=== PATIENT | female | born 1995 | race African-American/Black ===

== ENCOUNTER 2016-07-05 11:41 | Emergency (ER) | payer MEDICARE, MEDICAID ==
[~2016-07-05] VITALS: Ht 162.6 cm; Wt 49.0 kg
[~2016-07-05 11:41] MED LIST: ALPR.5 PO; IBUP-232 PO
[2016-07-05 11:42] VITALS: BP 179/93; PULSE 98; RESP 24; TEMP 97.9; O2SAT 100
[2016-07-05] MEDS ORDERED: SODIUM CHLOR 0.9% 1000 ML INJ 1,000 ML IV SCH ×2 (12:04→13:27)
[2016-07-05] MEDS ORDERED: ONDANSETRON HCL 4 MG/2 ML VIAL IVP ONE (12:15)
[2016-07-05] MEDS ORDERED: DICYCLOMINE HCL 20 MG/2 ML VIAL IM ONE (12:15)
[2016-07-05] MEDS ORDERED: MORPHINE SULFATE 4 MG/ML INJ IV PUSH ONE (12:15)
--- NOTE | 2016-07-05 12:22 | PD ---
HPI Chief Complaint: Abdominal Pain Time Seen by Provider: 12:18 Travel History International Travel<30 days: No Contact w/Intl Traveler<30days: No Traveled to known affect area: No History of Present Illness HPI 20-year-old female that presents to the ED for evaluation of lower abdominal pain. Per patient she's had right lower quadrant pain for the past week. Per patient is severe. Per patient she's throwing up as well. Patient denies any diarrhea. Per patient she does have some vaginal discharge. She denies any chest pain or shortness of breath. Per patient she to the flexeril with minimal relief. She states that the pain is severe 10 out of 10. On my initial exam evaluation patient is crouching in the position and cannot really let me touch her belly. Patient touches my stomach were she tells me that she hurts. Per patient she went to an urgent care today and they told her to come here. She states that the vomitus liquidy and she cannot keep anything down. She states that she does not believe that she could be but she has had intercourse recently. Patient has been here multiple times last year. Patient was seen multiple times for similar complaints and was never found to have any real disease. Per patient the pain does not radiate. Nothing makes the pain better or worse. PFSH Past Medical History Medical History: Denies Significant Hx Cardiovascular Problems: No Developmental Delay: No Diabetes: No Diminished Hearing: No Immunizations Current: Yes Tetanus Vaccination: Unknown Influenza Vaccination: No ?: Not LMP: 07/04/16 : 1 : 1 Past Surgical History Surgical History: No Previous Surgery Social History Alcohol Use: No Tobacco Use: No Substance Use: Yes (MARIJUANA) Allergies-Medications (Allergen,Severity, Reaction): Coded Allergies: No Known Allergies (Verified , 07/05/16) Reported Meds & Prescriptions Reported Meds & Active Scripts Active Zofran (Ondansetron HCl) 4 Mg Tab 4 Mg PO Q6HR PRN Bentyl (Dicyclomine HCl) 20 Mg Tab 20 Mg PO TID Ibuprofen 600 Mg Tab 600 Mg PO TID Reported Xanax (Alprazolam) 0.5 Mg Tab 0.5 Mg PO ONCE PRN Review of Systems General / Constitutional: No: Fever, Chills, Weight Gain, Weight Loss, Other Eyes: No: Diploplia, Blurred Vision, Photophobia, Drainage, Redness, Foreign Body Sensation, Pain, Tearing, Blind Spots, Visual changes, Blindness, Other HENT: No: Headaches, Vertigo, Lightheadedness, Sore Throat, Rhinitis, Rhinorrhea, Congestion, Nosebleed, Neck Stiffness, Neck Pain, Masses, Gingival Bleeding, Dental Difficulties, Ear Discharge, Earache, Other Cardiovascular: No: Chest Pain or Discomfort, Palpitations, Irregular Rhythm, Tachycardia, Diaphoresis, Syncope, Dyspnea on exertion, Varicosities, Edema, Cyanosis, Varicosities, Phlebitis, Claudication, Other Respiratory: No: Cough, Shortness of Breath, Wheezing, Sneezing, Orthopnea, Hemoptysis, Stridor, Night Sweats, Pleuritic Pain, Other Gastrointestinal: Positive: Nausea, Vomiting, Abdominal Pain, No: Diarrhea, Hematemesis, Hematochezia, Constipation, Changes in Bowel Habits, Indigestion, Dysphagia, Loss of Appetite, Other Genitourinary: Positive: Pelvic Pain, Discharge, No: Urgency, Frequency, Dysuria, Nocturia, Hematuria, Decreased Urinary Output, Oliguria, Hesitancy, Dribbling, Incontinence, Flank Pain, Dyspareunia, Dysmenorrhea, Menorrhagia, Metorrhagia, Vaginal Bleeding, Other Musculoskeletal: No: Myalgias, Arthralgias, Limited ROM, Weakness, Cramping, Edema, Pain, Atrophy, Other Skin: No Rash, No Itching, No Dryness, No Lumps, No Hives, No Change in Pigmentation, No Change in nails, No Alopecia, No Lesions, No Breast Lumps, No Breast Tenderness, No Breast Swelling, No Other Neurologic: No: Weakness, Dizziness, Syncope, Focal Abnormalities, Coordination Problem, Tremor, Ataxia, Headache, Change in Mentation, Slurred Speech, Paresthesia, Incontinence, Seizures, Sensory Disturbance, Other Psychiatric: No: Anxiety, Depression, Suicidal Ideations, Disorder of Thought, Mood Disorder, Substance Abuse, Homicidal Ideation, Other Endocrine: No: Heat Intolerance, Cold Intolerance, Polyuria, Polydipsia, Other Hematologic/Lymphatic: No: Easy Bruising, Lymph Node Enlargement, Other Physical Exam Narrative GENERAL: SKIN: Warm and dry. HEAD: Atraumatic. Normocephalic. EYES: Pupils equal and round. No scleral icterus. No injection or drainage. ENT: No nasal bleeding or discharge. Mucous membranes pink and moist. NECK: Trachea midline. No JVD. CARDIOVASCULAR: Regular rate and rhythm. No murmurs, S3, S4. RESPIRATORY: No accessory muscle use. Clear to auscultation. Breath sounds equal bilaterally. GASTROINTESTINAL: Abdomen soft, very tender with deep palpation on the pelvic region especially in the right lower quadrant and left lower quadrant, nondistended. Hepatic and splenic margins not palpable. Genital exam: Done with female nurse present. Patient was found to have menses from the vagina. No obvious discharge noted at this time. No obvious cervical tenderness. No adnexal tenderness. No lymphadenopathy or labia mass noted. MUSCULOSKELETAL: Extremities without clubbing, cyanosis, or edema. No obvious deformities. NEUROLOGICAL: Awake and alert. No obvious cranial nerve deficits. Motor grossly within normal limits. Five out of 5 muscle strength in the arms and legs. Normal speech. PSYCHIATRIC: Appropriate mood and affect; insight and judgment normal. Data Data Last Documented VS Vital Signs Date Time Temp Pulse Resp B/P Pulse Ox O2 Delivery O2 Flow Rate FiO2 07/05/16 12:19 18 07/05/16 11:42 97.9 98 179/93 100 Room Air Orders Complete Blood Count With Diff (07/05/16 12:04) Comprehensive Metabolic Panel (07/05/16 12:04) Lipase (07/05/16 12:04) Urinalysis - C+S If Indicated (07/05/16 12:04) Iv Access Insert/Monitor (07/05/16 12:04) NPO (07/05/16 12:04) Morphine Inj (Morphine Inj) (07/05/16 12:15) Ondansetron Inj (Zofran Inj) (07/05/16 12:15) Sodium Chlor 0.9% 1000 Ml Inj (Ns 1000 M (07/05/16 12:04) Dicyclomine Inj (Bentyl Inj) (07/05/16 12:15) Lactic Acid (07/05/16 12:13) Blood Culture (07/05/16 12:13) Gc And Chlamydia Pcr (07/05/16 12:14) Wet Prep Profile (07/05/16 12:14) Ct Abd/Pel W Iv Contrast(Rout) (07/05/16 12:43) Sodium Chlor 0.9% 1000 Ml Inj (Ns 1000 M (07/05/16 13:27) Ed Urine Pregnancytest Poc (07/05/16 13:28) Iohexol 350 Inj (Omnipaque 350 Inj) (07/05/16 14:11) Labs Laboratory Tests Test 07/05/16 07/05/16 07/05/16 07/05/16 12:15 12:35 13:20 13:30 White Blood Count 12.4 TH/MM3 Red Blood Count 4.66 MIL/MM3 Hemoglobin 12.2 GM/DL Hematocrit 37.0 % Mean Corpuscular Volume 79.3 FL Mean Corpuscular Hemoglobin 26.2 PG Mean Corpuscular Hemoglobin 33.1 % Concent Red Cell Distribution Width 14.8 % Platelet Count 227 TH/MM3 Mean Platelet Volume 9.4 FL Neutrophils (%) (Auto) 91.5 % Lymphocytes (%) (Auto) 5.7 % Monocytes (%) (Auto) 2.2 % Eosinophils (%) (Auto) 0.1 % Basophils (%) (Auto) 0.5 % Neutrophils # (Auto) 11.3 TH/MM3 Lymphocytes # (Auto) 0.7 TH/MM3 Monocytes # (Auto) 0.3 TH/MM3 Eosinophils # (Auto) 0.0 TH/MM3 Basophils # (Auto) 0.1 TH/MM3 CBC Comment DIFF FINAL Differential Comment Sodium Level 139 MEQ/L Potassium Level 3.5 MEQ/L Chloride Level 104 MEQ/L Carbon Dioxide Level 24.9 MEQ/L Anion Gap 10 MEQ/L Blood Urea Nitrogen 7 MG/DL Creatinine 1.19 MG/DL Estimat Glomerular Filtration 69 ML/MIN Rate Random Glucose 145 MG/DL Calcium Level 8.9 MG/DL Total Bilirubin 0.3 MG/DL Aspartate Amino Transf 22 U/L (AST/SGOT) Alanine Aminotransferase 19 U/L (ALT/SGPT) Alkaline Phosphatase 80 U/L Total Protein 8.2 GM/DL Albumin 4.4 GM/DL Lipase 101 U/L Lactic Acid Level 3.2 mmol/L Urine Color LIGHT-YELLOW Urine Turbidity HAZY Urine pH 8.5 Urine Specific [place] 1.011 Urine Protein NEG mg/dL Urine Glucose (UA) TRACE mg/dL Urine Ketones NEG mg/dL Urine Occult Blood LARGE Urine Nitrite NEG Urine Bilirubin NEG Urine Urobilinogen LESS THAN 2.0 MG/DL Urine Leukocyte Esterase NEG Urine RBC 20 /hpf Urine WBC 1 /hpf Urine Squamous Epithelial <1 /hpf Cells Urine Amorphous Sediment FEW Urine Bacteria RARE /hpf Urine Mucus FEW /lpf Microscopic Urinalysis Comment CULT NOT INDICATED Clue Cells (Wet Prep) NONE SEEN Vaginal Trichomonas (Wet Prep) NONE SEEN Vaginal Yeast (Wet Prep) NONE SEEN MDM Medical Decision Making Medical Screen Exam Complete: Yes Emergency Medical Condition: Yes Medical Record Reviewed: Yes Interpretation(s) CBC & BMP Diagram 07/05/16 12:15 Lactic acid of 3.2 LFTs and lipase within normal limits. CT of abdomen and pelvis showed fluid in pelvis otherwise unremarcable. Differential Diagnosis Pelvic pain versus PID versus appendicitis versus acute abdomen versus acute on chronic pain versus chronic pain versus discharge versus vaginitis Narrative Course 20-year-old female that presents to the ED for evaluation of lower pelvic pain. Patient was properly examined and was found to have signs and symptoms consistent with appears to be lower abdominal pain. Unclear etiology at this time. Labs and pelvic exam recommended. Patient was medicated to ease her discomfort to better evaluate for do pelvic exam. Patient is agreeable with this. Labs showed elevated white blood cell count as well as lactic acid. Pelvic exam was performed and she unfortunately is on her menses. So only menses was seen but there is no sign of acute discharge. I do not notice any cervical tenderness on exam. I do not believe this is PID at this time. Wet prep and labs were essentially unremarkable other than again for likely acid and elevated bubbles account. CT was done and this did not show any sign of acute disease. At this time I believe that this is likely acute on chronic abdominal pain and she's had similar symptoms in the past. I recommend close follow with GI specialist. Patient does feel somewhat improved from her symptoms. Patient is able to tolerate fluids. Patient will be sent home with prescription for Bentyl and Zofran. Told to the liquid diet. See ED for worsening symptoms. Diagnosis Primary Impression: Abdominal pain Qualified Code: R10.84 - Generalized abdominal pain Patient Instructions: General Instructions Additional Instructions: Take medications as prescribed. Follow-up with PCP. See ED for any worsening symptoms. Liquid diet. Apply ice or heat as needed for pain . Labs and imaging were essentially unremarkable today. Please follow with a GI specialist to better evaluate for your abdominal pain. Med/Other Pt SpecificInfo: Prescription(s) given Scripts Ondansetron (Zofran)4 Mg Tab4 Mg PO Q6HR PRN (NAUSEA OR VOMITING) #14 TAB Ref 0 Prov:Clark Vigil MD 07/05/16 Dicyclomine (Bentyl)20 Mg Tab20 Mg PO TID #20 TAB Prov:Clark Vigil MD 07/05/16 Disposition: 01 DISCHARGE HOME Condition: Stable Veto Berry Jul 05, 2016 12:21
[2016-07-05 12:35] LABS: AUTOMATED NEUTROPHIL # 11.3 TH/MM3 (1.8-7.7); BASOPHIL # 0.1 TH/MM3 (0-0.2); BASOPHIL % 0.5 % (0.0-2.0); EOSINOPHIL % 0.1 % (0.0-4.0); HEMO FLAGS DIFF FINAL; LYMPH % 5.7 % (9.0-44.0); LYMPHOCYTE # 0.7 TH/MM3 (1.0-4.8); MEAN CELL VOLUME 79.3 FL (80.0-100.0); MEAN CORPUSCULAR HEMOGLOBIN 26.2 PG (27.0-34.0); MEAN CORPUSCULAR HGB CONC 33.1 % (32.0-36.0); MONO % 2.2 % (0.0-8.0); NEUT % 91.5 % (16.0-70.0); PLATELET COUNT 227 TH/MM3 (150-450); RED BLOOD COUNT 4.66 MIL/MM3 (4.00-5.30); RED CELL DISTRIBUTION WIDTH 14.8 % (11.6-17.2); WHITE BLOOD COUNT 12.4 TH/MM3 (4.0-11.0)
[2016-07-05 12:53] LABS: ANION GAP 10 MEQ/L (5-15); AST (GOT) 22 U/L (15-37); BICARBONATE 24.9 MEQ/L (21.0-32.0); BLOOD UREA NITROGEN 7 MG/DL (7-18); CHLORIDE 104 MEQ/L (98-107); GLOMERULAR FILTRATION RATE 69 ML/MIN (>89); POTASSIUM 3.5 MEQ/L (3.5-5.1); SODIUM (NA) 139 MEQ/L (136-145)
[2016-07-05 12:56] LABS: ALKALINE PHOSPHATASE 80 U/L (45-117); ALT (GPT) 19 U/L (10-53); TOTAL BILIRUBIN ADULT 0.3 MG/DL (0.2-1.0)
[2016-07-05 13:00] VITALS: BP 127/76; PULSE 65; RESP 22; O2SAT 99
[2016-07-05 13:42] LABS: BACTERIA, URINE RARE /hpf; BLOOD, URINE LARGE (NEG); COMMENT (UR) CULT NOT INDICATED; CULTURE IF INDICATED CULT NOT INDICATED; GLUCOSE,URINE TRACE mg/dL (NEG); KETONE, URINE NEG (NEG); MUCUS URINE FEW /lpf (OCC); NITRITE,URINE NEG (NEG); PH, URINE 8.5 (5.0-8.5); SQUAMOUS EPITHELIAL CELL URINE <1 /hpf (0-5); URINE COLOR LIGHT-YELLOW (YELLW/STRAW)
[2016-07-05] MEDS ORDERED: IOHEXOL 350 MG/ML 10 ML VIAL (for RAD DIAG) IV ONE (14:11)
--- NOTE | 2016-07-05 15:17 | RADRPT ---
EXAM DATE/TIME: 07/05/2016 13:56 [facility] COMPARISON: CT ABDOMEN & PELVIS W CONTRAST, August 17, 2015, 15:21. INDICATIONS : Right lower abdomen pain for two weeks. IV CONTRAST: 70 cc Omnipaque 350 (iohexol) IV ORAL CONTRAST: No oral contrast ingested. RADIATION DOSE: 5.77 CTDIvol (mGy) MEDICAL HISTORY : None SURGICAL HISTORY : None. ENCOUNTER: Initial ACUITY: 2 weeks PAIN SCALE: 10/10 LOCATION: Right lower quadrant TECHNIQUE: Volumetric scanning of the abdomen and pelvis was performed. Using automated exposure control and adjustment of the mA and/or kV according to patient size, radiation dose was kept as low as reasonably achievable to obtain optimal diagnostic quality images. FINDINGS: Lung bases are clear. The liver, spleen, pancreas, adrenals and kidneys are unremarkab le. There is symmetrical renal function. Region of the cecum and terminal ileum are grossly unremarkable. Trace fluid is present in the pelvis. There is no adnexal mass. CONCLUSION: 1. Trace fluid in the pelvis without adnexal mass. 2. Limited evaluation of the cecum and terminal ileum because of lack of body fat. Jae Prabhakar MD FACR on July 05, 2016 at 15:01 Board Certified Radiologist. This report was verified electronically.
[2016-07-05] MEDS ORDERED: ZOFR4TAB PO (15:20)
[2016-07-05] MEDS ORDERED: BENT20TA PO (15:20)
[2016-07-05 15:27] VITALS: BP 110/75; PULSE 67; RESP 20; O2SAT 99
== END 2016-07-05 15:46 | disposition home or self-care (01) ==
LOC: NEPC 11:41
DX: R10.84 Generalized abdominal pain (principal); R11.10 Vomiting, unspecified; R10.2 Pelvic and perineal pain
CPT/HCPCS: 74177; 80053; 81001; 83605; 83690; 84703; 85025; 87040; 87210; 96361; 96372; 96374; 96375; 99284; J0500; J2270; J2405; J7030; Q9967

== ENCOUNTER 2017-03-28 07:46 | Emergency (ER) | payer MEDICARE, MEDICAID ==
[~2017-03-28] VITALS: Ht 152.4 cm; Wt 50.0 kg
[~2017-03-28 07:46] MED LIST changes: +BENT20TA PO; +ZOFR4TAB PO
[2017-03-28] MEDS ORDERED: SODIUM CHLOR 0.9% 1000 ML INJ 1,000 ML IV SCH (07:55)
[2017-03-28] MEDS ORDERED: SODIUM CHLORIDE 0.9% FLUSH 10 ML FLUSH IV FLUSH PRN (08:00)
[2017-03-28] MEDS: DICYCLOMINE HCL 20 MG/2 ML VIAL IM ONE ×2 (08:00→08:55)
[2017-03-28] MEDS ORDERED: ONDANSETRON HCL 4 MG/2 ML VIAL IVP ONE (08:00)
[2017-03-28 08:05] VITALS: BP 150/98; PULSE 86; RESP 16; O2SAT 100
--- NOTE | 2017-03-28 08:16 | PD ---
HPI Chief Complaint: GI Complaint Time Seen by Provider: 07:55 Travel History International Travel<30 days: No Contact w/Intl Traveler<30days: No Traveled to known affect area: No History of Present Illness HPI 21-year-old female patient with history of previous abdominal pains for the last 3 years, presents to the ER today with worsening abdominal pain today, lower abdomen, 8 out of 10, nausea and vomiting. She denies any diarrhea, fevers, urinary symptoms, or any other symptoms. She states that she thinks is worse with certain foods. She denies any unusual discharge. Modifying Factors: None Associated Signs & Symptoms: Lower [place] pains, nausea and vomiting Risk Factors: Similar pains for the last 3 years PFSH Past Medical History Cardiovascular Problems: No Developmental Delay: No Diabetes: No Diminished Hearing: No Immunizations Current: Yes : 1 : 1 Social History Alcohol Use: No Tobacco Use: No Substance Use: Yes (MARIJUANA) Allergies-Medications (Allergen,Severity, Reaction): Coded Allergies: No Known Allergies (Verified Adverse Reaction, Unknown, 03/28/17) Reported Meds & Prescriptions Reported Meds & Active Scripts Active Zofran (Ondansetron HCl) 4 Mg Tab 4 Mg PO Q6HR PRN Reported Xanax (Alprazolam) 0.5 Mg Tab 0.5 Mg PO ONCE PRN Review of Systems Except as stated in HPI: all other systems reviewed are Neg Physical Exam Narrative GENERAL: Well-developed young -[place] female patient currently in moderate distress, awake, alert, oriented 3. SKIN: Focused skin assessment warm/dry. HEAD: Atraumatic. Normocephalic. EYES: Pupils equal and round. No scleral icterus. No injection or drainage. ENT: No nasal bleeding or discharge. Mucous membranes pink and moist. NECK: Trachea midline. No JVD. CARDIOVASCULAR: Regular rate and rhythm. No murmur appreciated. RESPIRATORY: No accessory muscle use. Clear to auscultation. Breath sounds equal bilaterally. GASTROINTESTINAL: Abdomen soft, non-tender, nondistended. Hepatic and splenic margins not palpable. Benign. GENITOURINARY: Normal external genitalia without lesions or erythema. Vaginal vault without blood or drainage. Cervical os was closed without drainage. No cervical motion tenderness. Uterus nontender and nonenlarged. Bilateral adnexa nontender without masses. MUSCULOSKELETAL: No obvious deformities. No clubbing. No cyanosis. No edema. NEUROLOGICAL: Awake and alert. No obvious cranial nerve deficits. Motor grossly within normal limits. Normal speech. PSYCHIATRIC: Appropriate mood and affect; insight and judgment normal. Data Data Last Documented VS Vital Signs Date Time Temp Pulse Resp B/P (MAP) Pulse Ox O2 Delivery O2 Flow Rate FiO2 03/28/17 09:52 20 03/28/17 08:34 100 Room Air 03/28/17 08:05 86 150/98 (115) Orders Orders Complete Blood Count With Diff (03/28/17 07:55) Comprehensive Metabolic Panel (03/28/17 07:55) Lipase (03/28/17 07:55) Urinalysis - C+S If Indicated (03/28/17 07:55) Iv Access Insert/Monitor (03/28/17 07:55) Ecg Monitoring (03/28/17 07:55) Oximetry (03/28/17 07:55) Ondansetron Inj (Zofran Inj) (03/28/17 08:00) Sodium Chlor 0.9% 1000 Ml Inj (Ns 1000 M (03/28/17 07:55) Sodium Chloride 0.9% Flush (Ns Flush) (03/28/17 08:00) Dicyclomine Inj (Bentyl Inj) (03/28/17 08:00) Ed Urine Pregnancytest Poc (03/28/17 07:55) Ketorolac Inj (Toradol Inj) (03/28/17 08:30) Gc And Chlamydia Pcr (03/28/17 08:48) Wet Prep Profile (03/28/17 08:48) Morphine Inj (Morphine Inj) (03/28/17 09:45) Ed Discharge Order (03/28/17 10:24) Labs Laboratory Tests Test 03/28/17 08:10 03/28/17 08:50 White Blood Count 13.1 TH/MM3 Red Blood Count 4.73 MIL/MM3 Hemoglobin 12.9 GM/DL Hematocrit 38.6 % Mean Corpuscular Volume 81.6 FL Mean Corpuscular Hemoglobin 27.3 PG Mean Corpuscular Hemoglobin Concent 33.4 % Red Cell Distribution Width 14.3 % Platelet Count 320 TH/MM3 Mean Platelet Volume 9.3 FL Neutrophils (%) (Auto) 80.9 % Lymphocytes (%) (Auto) 13.2 % Monocytes (%) (Auto) 5.1 % Eosinophils (%) (Auto) 0.2 % Basophils (%) (Auto) 0.6 % Neutrophils # (Auto) 10.6 TH/MM3 Lymphocytes # (Auto) 1.7 TH/MM3 Monocytes # (Auto) 0.7 TH/MM3 Eosinophils # (Auto) 0.0 TH/MM3 Basophils # (Auto) 0.1 TH/MM3 CBC Comment DIFF FINAL Differential Comment Urine Color YELLOW Urine Turbidity CLEAR Urine pH 6.0 Urine Specific [place] 1.026 Urine Protein TRACE mg/dL Urine Glucose (UA) NEG mg/dL Urine Ketones NEG mg/dL Urine Occult Blood NEG Urine Nitrite NEG Urine Bilirubin NEG Urine Urobilinogen LESS THAN 2.0 MG/DL Urine Leukocyte Esterase NEG Urine RBC 1 /hpf Urine WBC 1 /hpf Urine Squamous Epithelial Cells 1 /hpf Urine Mucus MOD /lpf Microscopic Urinalysis Comment CULT NOT INDICATED Clue Cells (Wet Prep) NONE SEEN Vaginal Trichomonas (Wet Prep) NONE SEEN Vaginal Yeast (Wet Prep) NONE SEEN Blood Urea Nitrogen 8 MG/DL Creatinine 0.98 MG/DL Random Glucose 110 MG/DL Total Protein 8.3 GM/DL Albumin 3.8 GM/DL Calcium Level 8.2 MG/DL Alkaline Phosphatase 76 U/L Aspartate Amino Transf (AST/SGOT) 18 U/L Alanine Aminotransferase (ALT/SGPT) 21 U/L Total Bilirubin 0.5 MG/DL Sodium Level 141 MEQ/L Potassium Level 3.5 MEQ/L Chloride Level 110 MEQ/L Carbon Dioxide Level 21.9 MEQ/L Anion Gap 9 MEQ/L Estimat Glomerular Filtration Rate 86 ML/MIN Lipase 118 U/L [facility] Medical Decision Making Medical Screen Exam Complete: Yes Emergency Medical Condition: Yes Medical Record Reviewed: Yes Interpretation(s) Laboratory Tests Test 03/28/17 08:10 03/28/17 08:50 White Blood Count 13.1 TH/MM3 (4.0-11.0) Neutrophils (%) (Auto) 80.9 % (16.0-70.0) Neutrophils # (Auto) 10.6 TH/MM3 (1.8-7.7) Urine Mucus MOD /lpf (OCC) Random Glucose 110 MG/DL (74-106) Total Protein 8.3 GM/DL (6.4-8.2) Calcium Level 8.2 MG/DL (8.5-10.1) Chloride Level 110 MEQ/L (98-107) Estimat Glomerular Filtration Rate 86 ML/MIN (>89) Differential Diagnosis Abdominal pain, nausea and vomiting: Gastroenteritis versus UTI versus obstruction versus PID/cervicitis versus Narrative Course Abdomen is fairly benign on exam. Pelvic exam was fairly unremarkable. Her lab work shows some leukocytosis which she has had in the past as well. At this point, have talked her regarding findings and have talked her about whether a CAT scan should be done. Patient states that she has had multiple CAT scans done in the past for similar symptoms, and wants to wait getting one now. Abdomen is benign and I think that a CAT scan with same symptoms is not warranted at this point. She was given IV fluids, Toradol, Bentyl, without significant relief. Only after given morphine which the patient states the medication with the 'M' is usually what makes the pain go away. Patient is a daily marijuana user, I would recommend that she stops using marijuana since this could be exacerbating symptoms, it certainly is not improving her issues. At this point, plan would be to release her with follow-up to primary care physician regarding ongoing symptoms. Return for any worsening in symptoms as needed. The plan was discussed with her and she states understanding. Diagnosis Primary Impression: Abdominal pain Med/Other Pt SpecificInfo: Prescription(s) given Scripts Ondansetron Odt (Zofran Odt) 4 Mg Tab 4 MG SL Q6HR Y for Nausea/Vomiting, #7 TAB 0 Refills Prov: Laurent Mc MD 03/28/17 Disposition: 01 DISCHARGE HOME Condition: Stable Laurent Mc MD Mar 28, 2017 08:16
[2017-03-28 08:21] LABS: BLOOD, URINE NEG (NEG); COMMENT (UR) CULT NOT INDICATED; CULTURE IF INDICATED CULT NOT INDICATED; GLUCOSE,URINE NEG (NEG); KETONE, URINE NEG (NEG); MUCUS URINE MOD /lpf (OCC); NITRITE,URINE NEG (NEG); SQUAMOUS EPITHELIAL CELL URINE 1 /hpf (0-5); URINE COLOR YELLOW (YELLW/STRAW)
[2017-03-28 08:25] LABS: AUTOMATED NEUTROPHIL # 10.6 TH/MM3 (1.8-7.7); BASOPHIL # 0.1 TH/MM3 (0-0.2); BASOPHIL % 0.6 % (0.0-2.0); EOSINOPHIL % 0.2 % (0.0-4.0); HEMATOCRIT 38.6 % (35.0-46.0); HEMO FLAGS DIFF FINAL; LYMPH % 13.2 % (9.0-44.0); LYMPHOCYTE # 1.7 TH/MM3 (1.0-4.8); MEAN CELL VOLUME 81.6 FL (80.0-100.0); MEAN CORPUSCULAR HEMOGLOBIN 27.3 PG (27.0-34.0); MEAN CORPUSCULAR HGB CONC 33.4 % (32.0-36.0); MONO % 5.1 % (0.0-8.0); NEUT % 80.9 % (16.0-70.0); PLATELET COUNT 320 TH/MM3 (150-450); RED BLOOD COUNT 4.73 MIL/MM3 (4.00-5.30); RED CELL DISTRIBUTION WIDTH 14.3 % (11.6-17.2); WHITE BLOOD COUNT 13.1 TH/MM3 (4.0-11.0)
[2017-03-28] MEDS ORDERED: KETOROLAC TROMETHAMINE 30 MG/ML (IVP) VIAL IV PUSH ONE (08:30)
[2017-03-28 08:34] VITALS: O2SAT 100
[2017-03-28 08:37] LABS: ALKALINE PHOSPHATASE 76 U/L (45-117); ALT (GPT) 21 U/L (10-53); TOTAL BILIRUBIN ADULT 0.5 MG/DL (0.2-1.0)
[2017-03-28 09:21] LABS: ANION GAP 9 MEQ/L (5-15); AST (GOT) 18 U/L (15-37); BICARBONATE 21.9 MEQ/L (21.0-32.0); BLOOD UREA NITROGEN 8 MG/DL (7-18); CHLORIDE 110 MEQ/L (98-107); GLOMERULAR FILTRATION RATE 86 ML/MIN (>89); POTASSIUM 3.5 MEQ/L (3.5-5.1); SODIUM (NA) 141 MEQ/L (136-145)
[2017-03-28] MEDS ORDERED: MORPHINE SULFATE 2 MG/ML INJ IV PUSH ONE (09:45)
[2017-03-28] MEDS ORDERED: ZOFR4TAB3 SL (10:31)
[2017-03-28 10:43] VITALS: BP 148/98; PULSE 70; RESP 22; O2SAT 99
[2017-03-28 10:46] VITALS: RESP 22
[2017-03-28 11:46] LABS: CHLAMYDIA PCR NOT DETECTED (NOT DETECT); NEISSERIA PCR NOT DETECTED (NOT DETECT)
== END 2017-03-28 10:53 | disposition home or self-care (01) ==
LOC: NEPC 07:46
DX: R10.30 Lower abdominal pain, unspecified (principal); R11.2 Nausea with vomiting, unspecified; D72.829 Elevated white blood cell count, unspecified
CPT/HCPCS: 80053; 81001; 83690; 84703; 85025; 87210; 87491; 87591; 96361; 96372; 96374; 96375; 99284; J0500; J1885; J2270; J2405; J7030

== ENCOUNTER 2017-07-27 21:41 | Emergency (ER) | payer MEDICARE, MEDICAID ==
[~2017-07-27] VITALS: Ht 152.4 cm; Wt 50.0 kg
[~2017-07-27 21:41] MED LIST changes: -BENT20TA PO; -IBUP-232 PO; +ZOFR4TAB3 SL
[2017-07-27 22:51] VITALS: BP 159/83; PULSE 87; RESP 18; TEMP 99.4; O2SAT 99
--- NOTE | 2017-07-27 23:25 | PD ---
HPI Chief Complaint: Cold / Flu Symptoms Time Seen by Provider: 23:17 Travel History International Travel<30 days: No Contact w/Intl Traveler<30days: No Traveled to known affect area: No History of Present Illness HPI 21-year-old female here for evaluation because she believes she may have the flu. Symptoms started yesterday with headache, cough, subjective fevers and chills, sore throat. Cough is productive of yellowish sputum. No nausea or vomiting. No abdominal pain or diarrhea. No urinary symptoms. She took TheraFlu. She also took a dose of Advil yesterday. No antipyretics taken today. PFSH Past Medical History Medical History: Denies Significant Hx Cardiovascular Problems: No Developmental Delay: No Diabetes: No Diminished Hearing: No Immunizations Current: Yes ?: Not LMP: "2-3 MONTHS, I GET THE SHOT" : 1 : 1 Past Surgical History Surgical History: No Previous Surgery Social History Alcohol Use: No Tobacco Use: No Substance Use: Yes (MARIJUANA) Allergies-Medications (Allergen,Severity, Reaction): Coded Allergies: No Known Allergies (Verified Adverse Reaction, Unknown, 03/28/17) Reported Meds & Prescriptions Reported Meds & Active Scripts Active Zofran Odt (Ondansetron Odt) 4 Mg Tab 4 Mg SL Q6HR PRN Zofran (Ondansetron HCl) 4 Mg Tab 4 Mg PO Q6HR PRN Reported Xanax (Alprazolam) 0.5 Mg Tab 0.5 Mg PO ONCE PRN Review of Systems Except as stated in HPI: all other systems reviewed are Neg Physical Exam Narrative GENERAL: Well-developed, well-nourished, comfortable, no apparent distress. SKIN: Focused skin assessment warm/dry. No rash. HEAD: Atraumatic. Normocephalic. EYES: Pupils equal and round. No scleral icterus. No injection or drainage. ENT: No nasal bleeding or discharge. Mucous membranes pink and moist. Pharynx with mild erythema without exudates. Uvula midline. Normal phonation. No drooling or stridor. NECK: Trachea midline. No JVD. No nuchal rigidity. CARDIOVASCULAR: Regular rate and rhythm. No murmur appreciated. RESPIRATORY: No accessory muscle use. Clear to auscultation. Breath sounds equal bilaterally. GASTROINTESTINAL: Abdomen soft, non-tender, nondistended. MUSCULOSKELETAL: No obvious deformities. No clubbing. No cyanosis. No edema. NEUROLOGICAL: Awake and alert. No obvious cranial nerve deficits. Motor grossly within normal limits. Normal speech. PSYCHIATRIC: Appropriate mood and affect; insight and judgment normal. Data Data Last Documented VS Vital Signs Date Time Temp Pulse Resp B/P (MAP) Pulse Ox O2 Delivery O2 Flow Rate FiO2 07/27/17 22:51 99.4 87 18 159/83 (108) 99 Orders Orders Influenzae A/B Antigen (07/27/17 23:22) Group A Rapid Strep Screen (07/27/17 23:22) Urinalysis - C+S If Indicated (07/27/17 23:22) Ed Urine Pregnancytest Poc (07/27/17 23:22) Ibuprofen (Motrin) (07/27/17 23:45) Strep Culture (Group A) (07/27/17 23:30) Oseltamivir (Tamiflu) (07/28/17 00:15) Labs Laboratory Tests Test 07/27/17 23:30 Urine Color YELLOW Urine Turbidity HAZY Urine pH 6.0 Urine Specific [place] 1.032 Urine Protein 30 mg/dL Urine Glucose (UA) NEG mg/dL Urine Ketones NEG mg/dL Urine Occult Blood NEG Urine Nitrite NEG Urine Bilirubin NEG Urine Urobilinogen 2.0 MG/DL Urine Leukocyte Esterase MOD Urine RBC 2 /hpf Urine WBC 3 /hpf Urine Squamous Epithelial Cells 9 /hpf Urine Mucus MOD /lpf Microscopic Urinalysis Comment CULT NOT INDICATED MDM Medical Decision Making Medical Screen Exam Complete: Yes Emergency Medical Condition: Yes Medical Record Reviewed: Yes Differential Diagnosis Influenza, URI, viral illness, strep pharyngitis, UTI, bronchitis, pneumonia Narrative Course Vital signs show heart rate 87, blood pressure 159/83, pulse ox 99% on room air , oral temperature 98.4F. Influenza B positive. Group A strep negative. UA is not suggestive of UTI. Urine is negative. Patient was made aware of influenza B findings. She will be started on Tamiflu. She appears hydrated and her vital signs are within normal limits. I believe she is stable for discharge home with outpatient follow-up with a primary care physician this week. She was informed to keep well hydrated with plenty of fluids and to keep fever under control with Tylenol and ibuprofen. She was advised on when to return to the emergency department. She verbalizes understanding and agreement with plan. Diagnosis Primary Impression: Influenza B Referrals: Primary Care Physician 3 days Additional Instructions: Follow-up with a primary care physician this week. Stay hydrated with plenty of fluids. Keep fever under control with Tylenol and ibuprofen. Return to the emergency department for worsening symptoms or any other concerns. Scripts Oseltamivir (Tamiflu) 75 Mg Cap 75 MG PO BID for Mgmt Viral Infection for 5 Days, #10 CAP 0 Refills Prov: Manuel Cazares MD 07/28/17 Disposition: 01 DISCHARGE HOME Condition: Stable Manuel Cazares MD Jul 27, 2017 23:25
[2017-07-27 23:41] LABS: BILIRUBIN, URINE NEG (NEG); BLOOD, URINE NEG (NEG); GLUCOSE,URINE NEG (NEG); KETONE, URINE NEG (NEG); MUCUS URINE MOD /lpf (OCC); NITRITE,URINE NEG (NEG); SQUAMOUS EPITHELIAL CELL URINE 9 /hpf (0-5); URINE COLOR YELLOW (YELLW/STRAW); URINE LEUKOCYTE ESTERASE MOD (NEG)
[2017-07-27] MEDS ORDERED: IBUPROFEN 400 MG TAB PO ONE (23:45)
[2017-07-28] MEDS ORDERED: OSEL75 PO (00:04)
[2017-07-28] MEDS ORDERED: OSELTAMIVIR PHOSPHATE 75 MG CAP PO ONE (00:15)
== END 2017-07-28 00:49 | disposition home or self-care (01) ==
LOC: NEPD 21:41
DX: J10.1 Influenza due to other identified influenza virus with other respiratory manifestations (principal)
CPT/HCPCS: 81001; 84703; 87081; 87804; 87880; 99283